=== PATIENT | male | born 1995 | race Caucasian/White ===

== ENCOUNTER 2017-02-21 13:14 | Emergency (ER) | payer OTHER ==
[~2017-02-21] VITALS: Ht 188 cm; Wt 93.0 kg
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
[2017-02-21 13:49] VITALS: BP 129/69; PULSE 73; RESP 18; TEMP 97.9; O2SAT 98
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
[2017-02-21] MEDS ORDERED: IBUP-232 PO (16:08)
== END 2017-02-21 16:23 | disposition home or self-care (01) ==
LOC: NEDAMB 13:14
DX: S09.90XA Unspecified injury of head, initial encounter (principal); S16.1XXA Strain of muscle, fascia and tendon at neck level, initial encounter; M25.551 Pain in right hip; M25.571 Pain in right ankle and joints of right foot; V29.9XXA Motorcycle rider (driver) (passenger) injured in unspecified traffic accident, initial encounter; Y92.410 Unspecified street and highway as the place of occurrence of the external cause
CPT/HCPCS: 70450; 71010; 72125; 72170; 73610

== ENCOUNTER 2017-08-28 20:32 | Emergency (ER) | payer OTHER ==
[~2017-08-28] VITALS: Ht 188 cm; Wt 100.2 kg
[~2017-08-28 20:32] MED LIST: IBUP-232 PO
[2017-08-28 20:46] VITALS: BP 125/75; PULSE 91; RESP 18; TEMP 98; O2SAT 18; O2SAT 98
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
[2017-08-28] MEDS ORDERED: oxyCODONE/ACETAMINOPHEN 5 MG/325 MG TAB PO ONE (22:00)
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
[2017-08-28] MEDS ORDERED: IBUP-232 PO (23:14)
[2017-08-28] MEDS ORDERED: PERC5TAB12 PO (23:14)
== END 2017-08-28 23:45 | disposition home or self-care (01) ==
LOC: PHED 20:32
DX: S13.4XXA Sprain of ligaments of cervical spine, initial encounter (principal); M54.5 Low back pain; R51 Headache; M25.511 Pain in right shoulder; V43.62XA Car passenger injured in collision with other type car in traffic accident, initial encounter
CPT/HCPCS: 70450; 72100; 72125; 73030; 99284